=== PATIENT | male | born 1970 | race American Indian/Alaskan Native ===

== ENCOUNTER 2020-02-10 16:38 | Emergency (ER) | payer SELFPAY ==
[2020-02-10 16:43] VITALS: BP 151/95
--- NOTE | 2020-02-10 17:50 | Emergency Department Report ---
Chief Complaint: Extremity Injury, Lower Stated Complaint: FEET PAIN Time Seen by Provider: 02/10/20 17:46 - HPI History of Present Illness: This is a 49-year-old male with no prior medical history presents the ED complaining of bilateral foot pain for the past 1 year. Patient states that he has been having a growth on his skin and calluses that is been hurting to the bilateral foot. He denies any injury, trauma trauma lacerations, swelling, redness or anything to the feet. Patient is ambulatory - ROS Review of Systems: As noted in HPI - Exam Vital Signs: Vital Signs 02/10/20 16:39 Temperature 98.6 F Pulse Rate 63 Respiratory 20 Rate Blood Pressure 151/95 O2 Sat by Pulse 96 Oximetry Physical Exam: GENERAL: Alert and oriented x3, no apparent distress, Normal Gait, atraumatic. EXTREMITIES/MUSCULOSKELETAL: No cyanosis, clubbing, rash, lesions or edema to the foot bilaterally. Full ROM bilaterally. UE/LE Pulses 2+ bilaterally. LE and UE 5+ strength bilaterally, SKIN: Warm and dry, No lesions, No ulceration or induration present. MSE screening note: Focused history and physical exam performed. Due to findings the following was ordered: ED Disposition for MSE Clinical Impression: Callus of foot, Foot pain, bilateral Disposition: [id number] TO HOME OR SELFCARE Is pt being admited?: No Does the pt Need Aspirin: No Condition: Stable Instructions: Plantar Fasciitis (ED), Arthralgia (ED) Additional Instructions: Make sure to follow up with the primary care physician as discussed. Make sure to follow-up with a jalousies installer which is a foot doctor as you have been referred. If you have any worsening symptoms or develop new symptoms please return to ED immediately. Referrals: PRIMARY CARE, [Primary Care Provider] - 3-5 Days [facility] [Outside] - 3-5 Days [facility] [Outside] - 3-[address] [facility] [place] [Outside] - 3-5 Days TANIKA DELEON MD [Staff Physician] - 3-5 Days RANDALL BYNUM DPM [Staff Physician] - 3-5 Days KAREN RENTERIA DPM [Referring] - 3-5 Days ZEN RAMIREZ DPM [Referring] - 3-5 Days Forms: Work/School Release Form(ED) Time of Disposition: 17:50
== END 2020-02-10 17:57 | disposition home or self-care (01) ==
LOC: ED 16:38
DX: L84 Corns and callosities (principal); M25.571 Pain in right ankle and joints of right foot; M25.572 Pain in left ankle and joints of left foot
CPT/HCPCS: 99282